=== PATIENT | male | born 1965 | race Caucasian/White ===

== ENCOUNTER 2016-12-08 00:02 | Emergency (ER) | payer OTHER ==
[~2016-12-08] VITALS: Ht 175.3 cm; Wt 70.0 kg
[~2016-12-08 00:02] MED LIST: Z.0.NO CURRENT MEDS
[2016-12-08 00:13] VITALS: BP 145/75; PULSE 82; RESP 20; TEMP 98.2; O2SAT 98
--- NOTE | 2016-12-08 00:25 | PD ---
HPI Chief Complaint: Psychiatric Symptoms Time Seen by Provider: 00:24 Travel History International Travel<30 days: No Contact w/Intl Traveler<30days: No Traveled to known affect area: No History of Present Illness HPI 51 year-old male presents to the emergency department under Roblero act for psychiatric evaluation. Patient states that he had an argument with his and son. He threatened suicide and then attempted suicide by going out into the garage and starting the car. He states that his and son open the garage and he was not in there more than 7 minutes, however the garage door was open most of the time. He states after his and son kept opening the garage door, he gave up. Reports serious suicidal thoughts. Nuys any significant medical history. Does smoke marijuana. Has no other symptoms to report. PFSH Past Medical History Medical History: Denies Significant Hx Social History Alcohol Use: No Tobacco Use: No Substance Use: Yes Allergies-Medications (Allergen,Severity, Reaction): Coded Allergies: No Known Allergies (Verified Allergy, Mild, 12/14/06) Reported Meds & Prescriptions Reported Meds & Active Scripts Active Reported No Current Meds (Miscellaneous Medication) Misc Review of Systems Except as stated in HPI: all other systems reviewed are Neg Physical Exam Narrative GENERAL: Unkempt male patient, in no acute distress SKIN: Focused skin assessment warm/dry. HEAD: Atraumatic. Normocephalic. EYES: Pupils equal and round. No scleral icterus. No injection or drainage. ENT: No nasal bleeding or discharge. Mucous membranes pink and moist. NECK: Trachea midline. No JVD. CARDIOVASCULAR: Regular rate and rhythm. No murmur appreciated. RESPIRATORY: No accessory muscle use. Diminished, coarse to auscultation. Breath sounds equal bilaterally. GASTROINTESTINAL: Abdomen soft, non-tender, nondistended. Hepatic and splenic margins not palpable. MUSCULOSKELETAL: No obvious deformities. No clubbing. No cyanosis. No edema. NEUROLOGICAL: Awake and alert. No obvious cranial nerve deficits. Motor grossly within normal limits. Normal speech. Data Data Last Documented VS Vital Signs Date Time Temp Pulse Resp B/P (MAP) Pulse Ox O2 Delivery O2 Flow Rate FiO2 12/08/16 00:13 98.2 82 20 145/75 (98) 98 Orders Orders Complete Blood Count With Diff (12/08/16 00:24) Basic Metabolic Panel (Bmp) (12/08/16 00:24) Psych Screen (12/08/16 00:24) Drug Screen, Random Urine (12/08/16 00:24) Alcohol (Ethanol) (12/08/16 00:24) Labs Laboratory Tests Test 12/08/16 00:25 White Blood Count 9.9 TH/MM3 Red Blood Count 4.69 MIL/MM3 Hemoglobin 14.5 GM/DL Hematocrit 43.5 % Mean Corpuscular Volume 92.7 FL Mean Corpuscular Hemoglobin 31.0 PG Mean Corpuscular Hemoglobin Concent 33.4 % Red Cell Distribution Width 13.9 % Platelet Count 186 TH/MM3 Mean Platelet Volume 8.3 FL Neutrophils (%) (Auto) 70.2 % Lymphocytes (%) (Auto) 18.4 % Monocytes (%) (Auto) 8.4 % Eosinophils (%) (Auto) 2.5 % Basophils (%) (Auto) 0.5 % Neutrophils # (Auto) 6.9 TH/MM3 Lymphocytes # (Auto) 1.8 TH/MM3 Monocytes # (Auto) 0.8 TH/MM3 Eosinophils # (Auto) 0.2 TH/MM3 Basophils # (Auto) 0.0 TH/MM3 CBC Comment DIFF FINAL Differential Comment Blood Urea Nitrogen 15 MG/DL Creatinine 1.08 MG/DL Random Glucose 102 MG/DL Calcium Level 8.8 MG/DL Sodium Level 143 MEQ/L Potassium Level 3.8 MEQ/L Chloride Level 113 MEQ/L Carbon Dioxide Level 23.5 MEQ/L Anion Gap 7 MEQ/L Estimat Glomerular Filtration Rate 72 ML/MIN Ethyl Alcohol Level LESS THAN 3 MG/DL MDM Medical Decision Making Medical Screen Exam Complete: Yes Emergency Medical Condition: Yes Medical Record Reviewed: Yes Differential Diagnosis Mood disorder versus personality disorder versus adjustment reaction disorder Narrative Course 51-year-old male presents to emergency department under a Roblero act for psychiatric evaluation. Patient appears without distress. His vital signs are stable. I do not feel that the patient needs further carbon monoxide exposure workup as this was a brief period time and the garage door was open most of it. He denies any symptoms at this time. He appears well. Laboratory Tests Test 12/08/16 00:25 White Blood Count 9.9 TH/MM3 Red Blood Count 4.69 MIL/MM3 Hemoglobin 14.5 GM/DL Hematocrit 43.5 % Mean Corpuscular Volume 92.7 FL Mean Corpuscular Hemoglobin 31.0 PG Mean Corpuscular Hemoglobin Concent 33.4 % Red Cell Distribution Width 13.9 % Platelet Count 186 TH/MM3 Mean Platelet Volume 8.3 FL Neutrophils (%) (Auto) 70.2 % Lymphocytes (%) (Auto) 18.4 % Monocytes (%) (Auto) 8.4 % Eosinophils (%) (Auto) 2.5 % Basophils (%) (Auto) 0.5 % Neutrophils # (Auto) 6.9 TH/MM3 Lymphocytes # (Auto) 1.8 TH/MM3 Monocytes # (Auto) 0.8 TH/MM3 Eosinophils # (Auto) 0.2 TH/MM3 Basophils # (Auto) 0.0 TH/MM3 CBC Comment DIFF FINAL Differential Comment Blood Urea Nitrogen 15 MG/DL Creatinine 1.08 MG/DL Random Glucose 102 MG/DL Calcium Level 8.8 MG/DL Sodium Level 143 MEQ/L Potassium Level 3.8 MEQ/L Chloride Level 113 MEQ/L Carbon Dioxide Level 23.5 MEQ/L Anion Gap 7 MEQ/L Estimat Glomerular Filtration Rate 72 ML/MIN Ethyl Alcohol Level LESS THAN 3 MG/DL Patient is medically cleared to undergo psychiatric screening for further evaluation and disposition planning. Mental health screening discussed with the patient. Psychiatric screen ordered. Diagnosis Primary Impression: Adjustment disorder Qualified Codes: F43.23 - Adjustment disorder with mixed anxiety and depressed mood Condition: Stable Monica Jenkins Dec 08, 2016 00:25
[2016-12-08 00:42] LABS: AUTOMATED NEUTROPHIL # 6.9 TH/MM3 (1.8-7.7); BASOPHIL % 0.5 % (0.0-2.0); EOSINOPHIL # 0.2 TH/MM3 (0-0.4); EOSINOPHIL % 2.5 % (0.0-4.0); HEMATOCRIT 43.5 % (39.0-51.0); HEMO FLAGS DIFF FINAL; LYMPH % 18.4 % (9.0-44.0); LYMPHOCYTE # 1.8 TH/MM3 (1.0-4.8); MEAN CELL VOLUME 92.7 FL (80.0-100.0); MEAN CORPUSCULAR HGB CONC 33.4 % (32.0-36.0); MONO % 8.4 % (0.0-8.0); NEUT % 70.2 % (16.0-70.0); PLATELET COUNT 186 TH/MM3 (150-450); RED BLOOD COUNT 4.69 MIL/MM3 (4.50-5.90); RED CELL DISTRIBUTION WIDTH 13.9 % (11.6-17.2); WHITE BLOOD COUNT 9.9 TH/MM3 (4.0-11.0)
[2016-12-08 01:01] LABS: ANION GAP 7 MEQ/L (5-15); BICARBONATE 23.5 MEQ/L (21.0-32.0); BLOOD UREA NITROGEN 15 MG/DL (7-18); CHLORIDE 113 MEQ/L (98-107); GLOMERULAR FILTRATION RATE 72 ML/MIN (>89); POTASSIUM 3.8 MEQ/L (3.5-5.1); SODIUM (NA) 143 MEQ/L (136-145)
[2016-12-08 01:10] LABS: ALCOHOL LESS THAN 3 MG/DL (0-5)
[2016-12-08 06:00] VITALS: BP 94/62; PULSE 65; RESP 18; TEMP 99; O2SAT 95
--- NOTE | 2016-12-08 11:46 | PD ---
History of Present Illness Chief Complaint: Psychiatric Symptoms Time Seen by Provider: 11:40 Travel History International Travel<30 Days: No Contact w/Intl Traveler<30days: No Known affected area: No Legal Status Legal Status: Roblero Act Roblero Act Signed By: Bina Anand History of Present Illness: History of Present Illness 51 year-old male with no psychiatric history who presents to the emergency department under Roblero act initiated by SKINNY. 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 Subject then went to the garage and started up a vehicle and proceeded to place towels under the door. Subject told officers that he wanted to kill himself because his doesn't listen to him." The patient has been monitored in [facility] and has presented no behavioral dysregulation and so suicidality. EMR reviewed. No previous contact with [facility] psychiat[place]. Current toxicology is positive for cocaine as well as cannabinoids. Seen with nurse Simmons. The patient is alert and oriented male who appears older than stated age. He is malodorous and with unkempt appearance. He is calm and cooperative. Speech is clear and logical. There is no psychosis, no corinna, no suicidal or homicidal ideation,intent or plan. There is no objective clinical signs of depression or anxiety. Reports that he was involved in an argument with his over the financial status of his business. He states " I was just trying to get her attention and I knew what I did was not lethal. 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 He denies that he had any intention of harming himself and that he only wanted to get her attention. PFSH Past Medical History Medical History: Denies Significant Hx Psychiatric History Psychiatric History Hx Psychiatric Treatment: PATIENT DENIES History of Inpatient Treatment: No Guns or firearms in home: No Social History male who lives with her . 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 Hx Alcohol Use: No Hx Tobacco Use: No Hx Substance Use: Yes Substance Use Type: Marijuana, Cocaine Hx of Substance Use Treatment: No Family Psychiatric History Negative Allergies-Medications (Allergen,Severity, Reaction): Coded Allergies: No Known Allergies (Verified Allergy, Mild, 12/14/06) Reported Meds & Prescriptions Reported Meds & Active Scripts Active Reported No Current Meds (Miscellaneous Medication) Misc Review of Systems Except as stated in HPI: all other systems reviewed are Neg Exam Alert: Yes [place]: Person (ox4) Mood: Calm Affect: Appropriate Speech: Clear, Logical Eye Contact: Normal Memory Intact: Comment (No impairmetn ) Hallucinations: Other (Negative) Delusions: No Suicidal: Ideation (Denies any) Homicidal: Ideation (Deneis any) Insight/Judgement Poor. Not impaired. MDM Medical Decision Making Medical Record Reviewed: Yes Assessment/Plan 51 year-old male with no psychiatric history presents to the emergency department under Roblero act initiated by SKINNY. The Roblero act was filed in context of a marital argument. 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 Subject then went to the garage and started up a vehicle and proceeded to place towels under the door. Subject told officers that he wanted to kill himself because his doesn't listen to him." The patient has been monitored in [facility] and has presented no behavioral dysregulation and so suicidality. The patient does not present a major mental illness. He is cognitively intact No suicidal or homicidal ideation. No psychosis. No evidence of an unstable mental illness as defined under the Roblero act. Leana BA. Cleared from psychiatry for discharge. Orders Orders Complete Blood Count With Diff (12/08/16 00:24) Basic Metabolic Panel (Bmp) (12/08/16 00:24) Psych Screen (12/08/16 00:24) Drug Screen, Random Urine (12/08/16 00:24) Alcohol (Ethanol) (12/08/16 00:24) Diet Regular Basic (12/08/16 Breakfast) Diet Regular Basic (12/08/16 Lunch) Results Vital Signs Date Time Temp Pulse Resp B/P (MAP) Pulse Ox O2 Delivery O2 Flow Rate FiO2 12/08/16 06:00 99.0 65 18 94/62 (73) 95 Room Air 12/08/16 00:13 98.2 82 20 145/75 (98) 98 Laboratory Tests Test 12/08/16 00:25 12/08/16 08:20 White Blood Count 9.9 Red Blood Count 4.69 Hemoglobin 14.5 Hematocrit 43.5 Mean Corpuscular Volume 92.7 Mean Corpuscular Hemoglobin 31.0 Mean Corpuscular Hemoglobin Concent 33.4 Red Cell Distribution Width 13.9 Platelet Count 186 Mean Platelet Volume 8.3 Neutrophils (%) (Auto) 70.2 Lymphocytes (%) (Auto) 18.4 Monocytes (%) (Auto) 8.4 Eosinophils (%) (Auto) 2.5 Basophils (%) (Auto) 0.5 Neutrophils # (Auto) 6.9 Lymphocytes # (Auto) 1.8 Monocytes # (Auto) 0.8 Eosinophils # (Auto) 0.2 Basophils # (Auto) 0.0 CBC Comment DIFF FINAL Differential Comment Blood Urea Nitrogen 15 Creatinine 1.08 Random Glucose 102 Calcium Level 8.8 Sodium Level 143 Potassium Level 3.8 Chloride Level 113 Carbon Dioxide Level 23.5 Anion Gap 7 Estimat Glomerular Filtration Rate 72 Ethyl Alcohol Level LESS THAN 3 Urine Opiates Screen NEG Urine Barbiturates Screen NEG Urine Amphetamines Screen NEG Urine Benzodiazepines Screen NEG Urine Cocaine Screen POS Urine Cannabinoids Screen POS Diagnosis Primary Impression: Adjustment disorder Psychiatrically Cleared: Yes Med/ Other Pt Specific Info: No Meds Exist/No RX given Disposition: 01 DISCHARGE HOME Condition: Stable Problem Qualifiers Primary Impression: Adjustment disorder Qualified Codes: F43.20 - Adjustment disorder, unspecified Elizabeth Gary Dec 08, 2016 11:46
--- NOTE | 2016-12-08 11:50 | PD ---
Physical Exam Narrative I was asked by the psychiatric department to discharge patient has been cleared and Roblero act was lifted by psych. Patient was previously medically cleared by previous provider. Please see their documentation for full H&P. Patient denies any medical complaints at this time. Denies any homicidal or suicidal ideations. Data Data Last Documented VS Vital Signs Date Time Temp Pulse Resp B/P (MAP) Pulse Ox O2 Delivery O2 Flow Rate FiO2 12/08/16 12:11 97.9 80 18 108/64 (79) 12/08/16 06:00 95 Room Air Orders Orders Complete Blood Count With Diff (12/08/16 00:24) Basic Metabolic Panel (Bmp) (12/08/16 00:24) Psych Screen (12/08/16 00:24) Drug Screen, Random Urine (12/08/16 00:24) Alcohol (Ethanol) (12/08/16 00:24) Diet Regular Basic (12/08/16 Breakfast) Labs Laboratory Tests Test 12/08/16 00:25 12/08/16 08:20 White Blood Count 9.9 TH/MM3 Red Blood Count 4.69 MIL/MM3 Hemoglobin 14.5 GM/DL Hematocrit 43.5 % Mean Corpuscular Volume 92.7 FL Mean Corpuscular Hemoglobin 31.0 PG Mean Corpuscular Hemoglobin Concent 33.4 % Red Cell Distribution Width 13.9 % Platelet Count 186 TH/MM3 Mean Platelet Volume 8.3 FL Neutrophils (%) (Auto) 70.2 % Lymphocytes (%) (Auto) 18.4 % Monocytes (%) (Auto) 8.4 % Eosinophils (%) (Auto) 2.5 % Basophils (%) (Auto) 0.5 % Neutrophils # (Auto) 6.9 TH/MM3 Lymphocytes # (Auto) 1.8 TH/MM3 Monocytes # (Auto) 0.8 TH/MM3 Eosinophils # (Auto) 0.2 TH/MM3 Basophils # (Auto) 0.0 TH/MM3 CBC Comment DIFF FINAL Differential Comment Blood Urea Nitrogen 15 MG/DL Creatinine 1.08 MG/DL Random Glucose 102 MG/DL Calcium Level 8.8 MG/DL Sodium Level 143 MEQ/L Potassium Level 3.8 MEQ/L Chloride Level 113 MEQ/L Carbon Dioxide Level 23.5 MEQ/L Anion Gap 7 MEQ/L Estimat Glomerular Filtration Rate 72 ML/MIN Ethyl Alcohol Level LESS THAN 3 MG/DL Urine Opiates Screen NEG Urine Barbiturates Screen NEG Urine Amphetamines Screen NEG Urine Benzodiazepines Screen NEG Urine Cocaine Screen POS Urine Cannabinoids Screen POS MDM Supervised Visit with JAYNE: No Narrative Course Patient in no obvious distress upon re-evaluation. Any questions/concerns in reference to patient diagnosis/condition discussed and clarified prior to patient's discharge. Reinforced sheer importance of close follow up with patient 's primary physician or primary care clinic. Instructed patient to return to ED immediately, if symptoms return/worsen. Pt showed understanding of above instructions. Further instructions and recommendations were detailed in discharge paperwork. Pt ambulated without difficulty out of ED at discharge. Diagnosis Primary Impression: Adjustment disorder Qualified Codes: F43.23 - Adjustment disorder with mixed anxiety and depressed mood Referrals: [facility] Patient Instructions: General Instructions Additional Instruction: Follow-up with your primary care physician and/or Catrachito Rodriguez for reevaluation. Return to the emergency department if symptoms get worse. Disposition: 01 DISCHARGE HOME Condition: Stable Heriberto Lock Dec 08, 2016 11:50
[2016-12-08 12:11] VITALS: BP 108/64; TEMP 97.9
== END 2016-12-08 12:15 | disposition home or self-care (01) ==
LOC: NEPD 00:02 → NEPJ 12:15
DX: F43.23 Adjustment disorder with mixed anxiety and depressed mood (principal); R45.851 Suicidal ideations
CPT/HCPCS: 80048; 80307; 85025; 99283